=== PATIENT | female | born 1990 | race Caucasian/White ===

== ENCOUNTER 2019-09-29 08:34 | Day surgery (SDC) | payer SELFPAY ==
[~2019-09-29] VITALS: Ht 172.7 cm; Wt 82.1 kg
[~2019-09-29 08:34] MED LIST: HYDROmorphone HCL 2 MG/ML 1ML VIAL (J1170) As Ordered ONE; IBUP80TA PO; KETOROLAC 60 MG/2 ML VIAL (J1885) As Ordered ONE; LIDOCAINE 1% MDV 20ML VIAL SQ PRN; LIDOCAINE 2% INJ 100 MG/5 ML SDV (FOR ANES.) As Ordered ONE; LR 1,000 ML IV ONE; MIDAZOLAM INJ 2 MG/2 ML VIAL (J2250) As Ordered ONE; ONDANSETRON 4MG/2ML VIAL (J2405) As Ordered ONE; OXYC1TAB23 PO; PR NPAK3 PO; PROPOFOL 200 MG/20 ML VIAL As Ordered ONE; ROCURONIUM BROMIDE 50 MG/5 ML VIAL As Ordered ONE; SUGAMMADEX SODIUM 500 MG/5 ML VIAL (BRIDION) As Ordered ONE; ceFAZolin SOD 2 GM in IV 1 EA IV ONE; dexameTHASONE 4 MG/ML 1ML VIAL (J1100) As Ordered ONE; fentaNYL 100 MCG/2 ML INJECTION (J3010) As Ordered ONE
[2019-09-29] MEDS ORDERED: BUPIVACAINE HCL 0.25% 30 ML VIAL As Ordered ONE (09:08)
[2019-09-29 09:14] LABS: HEMATOCRIT 47.3 % (36.0-47.0); HEMOGLOBIN 15.4 g/dl (12.0-15.5); MEAN CORPUSCULAR HEMOGLOBIN 29.1 pg (27.0-33.0); MEAN CORPUSCULAR HGB CONC 32.6 g/dl (32.0-36.5); MEAN CORPUSCULAR VOLUME 89.4 fl (80.0-96.0); PLATELET COUNT, AUTOMATED 296 10^3/uL (150-450); RED BLOOD COUNT 5.29 10^6/uL (4.00-5.40)
[2019-09-29] MEDS ORDERED: GLYCOPYRROLATE INJ 0.2 MG/ML 2 ML VIAL As Ordered ONE (10:03)
[2019-09-29] MEDS ORDERED: PHENYLephrine HCL 500 MCG/5 ML (100MCG/ML) SYRINGE (J2370) As Ordered ONE (10:49)
[2019-09-29] MEDS ORDERED: OXYC1TAB23 PO (11:58)
[2019-09-29] MEDS ORDERED: IBUP-1022 PO (11:59)
[2019-09-29] MEDS ORDERED: ONDANSETRON 4MG/2ML VIAL (J2405) IV PRN ×2 (12:30)
[2019-09-29] MEDS ORDERED: KETOROLAC 30 MG/ML VIAL (J1885) IV PRN (12:30)
[2019-09-29] MEDS ORDERED: PERCOCET 5MG/325MG TAB PO PRN ×3 (12:30)
[2019-09-29] MEDS ORDERED: METOCLOPRAMIDE INJ 10MG/2ML VIAL (J2765) IV PRN (12:30)
[2019-09-29] MEDS ORDERED: MORPHINE 4 MG/ML 1ML VIAL/SYRINGE (J2270) IV PRN (12:30)
[2019-09-29] MEDS ORDERED: fentaNYL 100 MCG/2 ML INJECTION (J3010) IV PRN (12:30)
[2019-09-29] MEDS ORDERED: LR 1,000 ML IV SCH (12:30)
[2019-09-29 12:50] VITALS: BP 122/81
[2019-09-29 13:20] VITALS: BP 125/67
[2019-09-29 13:50] VITALS: BP 117/59
[2019-09-29 14:50] VITALS: BP 122/64
[2019-09-29] MEDS ORDERED: DOCUSATE SODIUM 100 MG CAP PO SCH (21:00)
--- NOTE | 2019-09-30 09:50 | RO ---
DATE OF PROCEDURE: 09/29/2019 PREPROCEDURE DIAGNOSIS: Large fibroid uterus. POSTPROCEDURE DIAGNOSIS: Large fibroid uterus. PROCEDURE: Laparoscopic supracervical hysterectomy. SURGEON: Abdias Godoy MD MEDICAL RECEPTIONIST BILLER: Vanda Bob NP ANESTHESIA: General endotracheal. ESTIMATED BLOOD LOSS: 200mL. URINE OUTPUT: 100 mL. FINDINGS: Large fibroid uterus with distortion of the right ovary and fallopian tube due to stretching from the fibroid. Normal upper abdomen. DESCRIPTION OF PROCEDURE: Patient taken to the operating room where general endotracheal anesthesia was induced. She was prepped and draped in a sterile fashion in the dorsal lithotomy position. Lynch catheter was placed. A Raising IT uterine manipulator was placed. A periumbilical incision was made with a scalpel. A Veress needle was placed through this incision while tenting up on the skin of the abdomen. Intraabdominal location of the Veress needle was assessed by the use of a saline-filled syringe. Pneumoperitoneum was created. The Veress needle was removed. 8 mm trocar using Visiport was inserted through this incision. 38 mm suprapubic ports were placed under direct visualization without difficulty. The patient was placed in Trendelenburg position. The Da Vicky surgical robot was docked to the ports. Using the fenestrated bipolar instrument and the vessel sealer, the utero-ovarian ligaments, the fallopian tubes, and round ligaments were coagulated and incised. The anterior and posterior leaves of the broad ligament were , a bladder flap was created. The uterine vessels were skeletonized near the junction of the lower uterine segment and cervix. They were coagulated and incised. Monopolar Endo Gail used to amputate the uterus from the cervix near the level of the internal os. Specimen was removed without difficulty. The base of the cervix was oversewn with a #2 V-Loc suture in a running fashion. The internal os had been coagulated with the Endo Gail prior to this. The Da Vicky surgical robot was undocked. The patient was placed in the supine position. The periumbilical incision was extended with a scalpel down to the fascia. The fascia was opened. The Mini GelPOINT device was placed through this port. A 15 mm Endo Catch bag was placed through this port, and the specimen was placed in the Endo Catch bag and withdrawn through the umbilicus. Specimen, large, had to be morcellated in numerous pieces in order to be removed through the abdominal incision. Specimen was removed in its entirety within the bag. The fascia was closed with #0 Vicryl in a running fashion. The deep layer was closed with #2-0 Vicryl, the skin was closed with #4-0 Monocryl subcuticular sutures. Sponge, instrument and needle counts were correct. Vanda Bob NP, assisted throughout the procedure. She helped to position the patient and insert the ports. She manipulated the uterus during the procedure and helped remove the specimen through the abdominal incision. She subsequently helped to close and then move the patient.
== END 2019-09-29 16:50 | disposition home or self-care (01) ==
LOC: M SDC 08:34 → M PED 12:45 → M SDC 16:50
PROVIDERS: ATTEND Specialist
DX: N85.8 Other specified noninflammatory disorders of uterus (principal); D25.9 Leiomyoma of uterus, unspecified
CPT/HCPCS: 36415; 58543; 81025; 85027; 86850; 86900; 86901; 88307; J0690; J1100; J1170; J1885; J2250; J2370; J2405; J3010